=== PATIENT | male | born 1970 | race Caucasian/White ===

== ENCOUNTER 2023-04-18 14:30 | Emergency (ER) | payer OTHER | END 2023-04-18 15:50 | disposition home or self-care (01) | LOC: NAV ERS 14:30 | DX: J10.1 Influenza due to other identified influenza virus with other respiratory manifestations (principal); I10 Essential (primary) hypertension; F17.220 Nicotine dependence, chewing tobacco, uncomplicated; Z79.899 Other long term (current) drug therapy | CPT/HCPCS: 87635; 87804; 99283 ==